=== PATIENT | female | born 1985 | race Caucasian/White ===

== ENCOUNTER 2019-03-19 12:07 | Inpatient (IN) | payer MEDICAID ==
[~2019-03-19] VITALS: Ht 167.6 cm; Wt 66.7 kg
[2019-03-19 12:15] VITALS: Ht 167.6 cm; Wt 66.7 kg
--- NOTE | 2019-03-19 12:21 | NUR ---
AMBULATED TO LOBBY WITH STEADY GAIT; PROVIDED WITH URINE CUP FOR SPECIMEN COLLECTION; AAOX4, AWAITING ROOM AT THIS TIME
[2019-03-19 12:56] LABS: BASOPHIL % 0.3 % (0-2); PLATELET COUNT 213 x10^3mcL (130-400); RED CELL DISTRIBUTION WIDTH 12.4 % (11.5-14.5)
--- NOTE | 2019-03-19 13:30 | NUR ---
TO BED 7 AFTER ULTRASOUND.
--- NOTE | 2019-03-19 13:45 | NUR ---
PT PRESENTS TO ED WITH C/O OF VAGINAL BLEEDING AND ABDOMINAL TENDERNESS. PT REPORTS VAGINAL BLEEDING X1 DAY AND SUPRAPUBIC PAIN. PT STS PELVIC PAIN WAS MORE SEVERE YESTERDAY. PT AMBULATED TO [facility] WITH STEADY GAIT, AAOX4, RESP E/U, NO ACUTE DISTRESS NOTED AT THIS TIME. PT ON MONITOR, AT BEDSIDE FOR MSE.
--- NOTE | 2019-03-19 15:37 | NUR ---
PER KEEP PT IN ED UNTIL SURGERY.
--- NOTE | 2019-03-19 15:50 | NUR ---
PER RN LINDA PT OK TO TRANSFER TO INPATIENT ROOM 221B.
[2019-03-19 15:53] LABS: CALCIUM 9.3 mg/dL (8.5-10.1); CHLORIDE SERUM 107 mmol/L (98-107); CREATININE SERUM 0.4 mg/dL (0.6-1.0); GFR1 > 60 mL/min; GLUCOSE SERUM 246 mg/dL (74-106); POTASSIUM SERUM 4.3 mmol/L (3.5-5.1); SODIUM SERUM 141 mmol/L (136-145)
--- NOTE | 2019-03-19 15:58 | NUR ---
REPORT GIVEN TO RILEY THOMAS ON TELE UNIT TO ASSUME CARE OF PT.
--- NOTE | 2019-03-19 16:10 | NUR ---
RECEIVED PT VIA [employer] FROM E/D, ACCOMPANIED BY RN, TRANSPORTER, AND PT'S MOTHER, JULIAN RFY. PT A/A/O X 4, CALM, COOPERATIVE. PT AMBULATORY, NO GAIT OR BALANCE IMPAIRMENT NOT[facility] ON TELE # 13, HR 124, ST, DENIES CHEST PAIN OR DISCOMFORT AT THIS TIME. NO ACUTE RESPIRATORY DISTRESS NOTED. VOIDS FREELY, HEMATURIA, LAST PERIOD 02/02/19, A1, INTERMITTENT LEFT ABDOMINAL CRMAPING 02/14, EXACERBATED BY MOVEMENT AND BENDING, RELIEVED BY REST. IV SITE LAC 20G, CDI. ORIENTED PT AND MOTHER TO ROOM, BED CONTROLS, CALL LIGHT SYSTEM. SIDE RAILS UP X 2, BED IN LOW POSITION. WILL ENDORSE TO RILEY THOMAS.
[2019-03-19 16:35] VITALS: BP 109/40
--- NOTE | 2019-03-19 16:39 | NUR ---
WENT TO OR WITH OR NURSE NOW.
--- NOTE | 2019-03-19 19:15 | NUR ---
RECEIVED PATIENT FROM OR. DROWSY, AROUSABLE. LOWER ABD INCISION COVERED W/ STERI STRIP D/C/I. DENIED PAIN. IVF OF NS 100CC/HR TO LAC. ENDORSED CARE TO MILLICENT MURPHY NURSE.
--- NOTE | 2019-03-19 19:30 | NUR ---
RECEIVED REPORT FROM DAY SHIFT RN. PT RESTING IN BED WITH EYES CLOSED. AROUSABLE WITH VERBAL STIMULI. NO SOB ON O2 2L VIA NC. BREATHING EVEN AND UNLABORED. NO DISTRESS NOTED. DRESSING TO SUPRAPUBIC AREA, C/D/I. IV TO LAC, INTACT. SAFETY MEASURES IN PLACE. BED IN LOWEST POSITION. SIDE RAILS UP X2. INSTRUCTED PT AND FAMILY TO USE THE CALL LIGHT FOR ASSISTANCE. CALL LIGHT WITHIN REACH.
--- NOTE | 2019-03-19 21:24 | NUR ---
PT C/O HEADACHE. MEDICATED WITH TYLENOL.
[2019-03-19 21:45] VITALS: BP 101/49
--- NOTE | 2019-03-19 22:00 | NUR ---
PER DR HODGES, SALINE LOCK AND OK TO GIVE JELLO TONIGHT. PT TOLERATED DIET. NO C/O NAUSEA/VOMITING.
--- NOTE | 2019-03-20 01:10 | NUR ---
PT RESTING WITH EYES CLOSED. NO SOB ON O2 2L VIA NC. NO FACIAL GRIMACING. NO DISTRESS NOTED. CALL LIGHT WITHIN REACH. MOTHER AT BEDSIDE.
--- NOTE | 2019-03-20 01:55 | NUR ---
PT C/O ABD STABBING PAIN 03/17. MEDICATED WITH NORCO.
[2019-03-20 03:01] LABS: UA SPECIFIC GRAVITY 1.025 (1.005-1.035); microscopic required? YES; urine erythrocyte 3+ (NEGATIVE)
[2019-03-20 05:39] VITALS: BP 101/43
--- NOTE | 2019-03-20 05:46 | NUR ---
PT SLEPT AT LONG INTERVALS THROUGHOUT SHIFT. NO SOB ON ROOM AIR. NO DISTRESS NOTED. DRESSING TO SUPRAPUBIC, C/D/I. PT AMBULATED TO THE BATHROOM WITH MINIMAL ASSISTANCE. SAFETY MEASURES MAINTAINED. CALL LIGHT WITHIN REACH. MOTHER AT BEDSIDE. WILL ENDORSE CONTINUITY OF CARE TO ONCOMING RN.
[2019-03-20 06:21] LABS: BASOPHIL % 0.5 % (0-2); PLATELET COUNT 191 x10^3mcL (130-400); RED CELL DISTRIBUTION WIDTH 12.2 % (11.5-14.5)
--- NOTE | 2019-03-20 08:00 | NUR ---
A/A/OX4. TELE#13, ST, HR = 121. DENIED CHEST PAIN. NO RESP DISTRESS ON RA. O2 SAT 96%. TOLERATED CLEAR LIQUID DIET BREAKFAST. NO N/V. STATED NOT PASSING GAS YET. ABD FLAT/SOFT. LOWER ABD INCISION W/ DRSG D/C/I. C/O INCISIONAL PAIN ON 02/14. TORADOL 15MG IVP GIVEN. VOID FREELY, SMALL BLOOD CLOTS IN URINE NOTED. AMBULATED ON STEADY GAIT. ENCOURAGE TO AMBULATE IN [place] TOLERATED. MOTHER AT BED SIDE. CALL LIGHT IN REACH.
[2019-03-20 09:30] VITALS: BP 102/47
--- NOTE | 2019-03-20 11:50 | NUR ---
C/O INCISIONAL PAIN ON 04/16. NORCO 5/325 PO GIVEN. CONTINUE MONITOR.
--- NOTE | 2019-03-20 12:38 | NUR ---
Discount pharmacy card and list to low cost medical clinics given to patient by Cruzito.
[2019-03-20 13:00] VITALS: BP 117/47
[2019-03-20 14:18] VITALS: BP 117/47
--- NOTE | 2019-03-20 16:05 | NUR ---
TALKED TO PARAMJIT, ADMISSIONS RECRUITER - PATIENT'S DRSG TO LOWER ABD INCISION W/ STERI STRIP. CLEAN/DRY/INTACT. I WAS UNABLE TO OPEN SURGICAL DRSG WITHOUT DOCTOR'S ORDER. PARAMJIT SAID THAT DO NOT OPEN SURGICAL DRSG AT TIME OF DISCHARGE TIME.
--- NOTE | 2019-03-20 16:06 | NUR ---
C/O INCISIONAL PAIN ON 04/16. NORCO 5/325 PO GIVEN. CONTINUE MONITOR.
--- NOTE | 2019-03-20 16:37 | NUR ---
PATIENT TOLERATED LATE LUNCH REGULAR DIET. NO N/V. STATED HAD PASSING GAS. NO BM YET. D/C TO HOME PER ORDER. INSTRUCTION GIVEN. TRANSLATED BY BERNABE JORDAN. PATIENT'S INCISIONAL PAIN DOWN TO TOLERATED LEVEL. IV H/C'D. PRESCRIPTION OF IBUPROFEN GIVEN. CONDITION STABLE.
== END 2019-03-20 16:47 | disposition home or self-care (01) | DRG 545 ==
LOC: ED 12:07 → DU 14:46
PROVIDERS: Anesthesiology; Obstetrics & Gynecology; ADMIT Internal Medicine
PROC: 0UC50ZZ Extirpation of Matter from Right Fallopian Tube, Open Approach (ICD-10-PCS; principal; 2019-03-19 18:00)
DX: O00.101 Right tubal pregnancy without intrauterine pregnancy (principal)
CPT/HCPCS: 82962; 84439; G0378; J0330; J0690; J1170; J1885; J2405; J2704; J2710; J3010; J3490; J7030; J7120